=== PATIENT | male | born 1935 | race Caucasian/White ===

== ENCOUNTER 2023-08-04 09:23 | Emergency (ER) | payer MEDICARE, OTHER ==
[2023-08-04 09:53] LABS: BASOPHILS ABSOLUTE AUTO 0.02 K/uL (0.00-0.20); BASOPHILS PERCENT AUTO 0.2 % (0.0-2.0); EOSINOPHILS ABSOLUTE AUTO 0.29 K/uL (0.00-0.50); EOSINOPHILS PERCENT AUTO 3.2 % (0.0-5.0); HEMATOCRIT 42.2 % (39.0-49.0); HEMOGLOBIN 13.6 g/dL (13.1-16.8); LYMPHOCYTES ABSOLUTE AUTO 1.66 K/uL (0.50-3.50); LYMPHOCYTES PERCENT AUTO 18.2 % (10.0-50.0); MEAN CORPUSCULAR HEMOGLOBIN 28.9 pg (28.2-33.3); MEAN CORPUSCULAR HGB CONC 32.2 g/dL (31.7-36.0); MEAN CORPUSCULAR VOLUME 89.8 fL (84.0-98.0); MONOCYTES ABSOLUTE AUTO 1.27 K/uL (0.00-1.00); MONOCYTES PERCENT AUTO 13.9 % (2.0-14.0); NEUTROPHILS ABSOLUTE AUTO 5.88 K/uL (1.40-7.00); NEUTROPHILS PERCENT AUTO 64.5 % (45.0-80.0); PLATELET COUNT,PLT 474 K/uL (150-350); RED CELL DISTRIBUTION WIDTH 14.8 % (11.2-14.1); WHITE BLOOD CELL COUNT,WBC 9.1 K/uL (4.0-10.2)
[2023-08-04 09:59] LABS: APPEARANCE,URINE SLIGHTLY CLOUDY; BILIRUBIN,URINE NEGATIVE (NEGATIVE); COLOR,URINE OTHER; GLUCOSE,URINE NEGATIVE (NEGATIVE); KETONES,URINE NEGATIVE (NEGATIVE); LEUKOCYTE ESTERASE,URINE TRACE (NEGATIVE); NITRITE,URINE NEGATIVE (NEGATIVE); OCCULT BLOOD,URINE SMALL (NEGATIVE); PH,URINE 5.5 (5.0-9.0); PROTEIN,URINE NEGATIVE (NEGATIVE); UROBILINOGEN,URINE 0.2 E.U./dL (0.2-1.0)
[2023-08-04 10:12] LABS: BACTERIA,URINE FEW /HPF (NONE TO FEW); EPITHELIAL CELLS,URINE OCCASIONAL /LPF
[2023-08-04 10:13] LABS: MUCUS,URINE FEW /LPF (NEGATIVE); RBC,URINE 30-40 /HPF
[2023-08-04 10:18] LABS: ALBUMIN 2.5 g/dL (3.4-5.0); BILIRUBIN TOTAL 0.4 mg/dL (0.2-1.0); CALCIUM 8.8 mg/dL (8.5-10.1); CARBON DIOXIDE,CO2 22.2 mmol/L (21.0-32.0); EST CRCL DRUG DOSING (CG) 11.18 mL/min; INR 1.1 (0.9-1.1); MAGNESIUM 2.2 mg/dL (1.8-2.4); POTASSIUM,K 4.6 mmol/L (3.5-5.1); PROTEIN TOTAL,TP 7.3 g/dL (6.4-8.2)
[2023-08-04 10:21] LABS: ANION GAP 16.4 meq/L (7-15)
[2023-08-04 10:22] LABS: CREATININE 4.59 mg/dL (0.51-1.17)
[2023-08-04] MEDS: Lactated Ringers 1,000 ML IV ONE (10:30)
[2023-08-04] MEDS: Sodium Chloride 0.9% 10 ML Syringe FLUSH PRN (10:30)
[2023-08-04 12:44] VITALS: BP 115/95; PULSE 66
== END 2023-08-04 12:50 ==
LOC: LL.ED 09:23
DX: N17.9 Acute kidney failure, unspecified (principal); R41.0 Disorientation, unspecified; Z79.899 Other long term (current) drug therapy; Z79.02 Long term (current) use of antithrombotics/antiplatelets; Z87.891 Personal history of nicotine dependence
CPT/HCPCS: 36415; 80053; 81001; 83735; 83880; 85025; 85610; 87086; 96360; 96361; 99285-25; J3490; J7120